=== PATIENT | female | born 1950 | race Hispanic/Latino ===

== ENCOUNTER 2018-07-25 00:10 | Day surgery (SDC) | payer MEDICARE, MEDICAID ==
[2018-07-24 14:36] VITALS: BP 116/72
--- NOTE | 2018-07-24 15:31 | DIREP ---
PROCEDURE:CHEST 2 VIEWS COMPARISON:[facility], CR, ABD 2V WITH CXR, 08/13/2012, 11:07 PM. INDICATIONS:PRE-OP CARDIAC CATH, ABN STRESS TEST, CHEST PAIN FINDINGS: LUNGS/PLEURA:No significant pulmonary parenchymal abnormalities. No effusions. VASCULATURE:Normal. Unremarkable pulmonary vasculature. CARDIAC:Normal. No cardiac silhouette abnormality or cardiomegaly. MEDIASTINUM:Normal. No visible mass or adenopathy. BONES:Normal. No fracture or visible bony lesion. OTHER:Surgical clips are noted in the left breast. CONCLUSION:No active or acute cardiopulmonary disease is seen. Dictated by: Damien Torres M.D. on 07/24/2018 at 03:29 PM
[~2018-07-25] VITALS: Ht 161.3 cm; Wt 81.6 kg
[2018-07-25] VITALS (13 sets, daily range): BP systolic 132–152; BP diastolic 7–78
[~2018-07-25 00:10] MED LIST: CHOL500016 PO; GABA300C10 PO; HYDR200T72 PO; NAPR-636 PO; OMEP40CA6 PO; TRAM50TA PO; ZOLP10TA5 PO
[2018-07-25] MEDS ORDERED: NS 1000ML 1,000 ML ONE ×2 (05:16→06:09)
[2018-07-25] MEDS ORDERED: HEPARIN ONE (06:09)
[2018-07-25] MEDS ORDERED: SUBLIMAZE ONE (06:09)
[2018-07-25] MEDS ORDERED: VERSED ONE (06:10)
[2018-07-25] MEDS ORDERED: XYLOCAINE ONE (06:10)
[2018-07-25] MEDS ORDERED: PHENERGAN PO ONE (07:00)
[2018-07-25] MEDS ORDERED: VALIUM PO ONE (07:00)
[2018-07-25] MEDS ORDERED: NS 1000ML 1,000 ML IV SCH (07:00)
[2018-07-25] MEDS ORDERED: SOLU-MEDROL IV ONE (07:00)
[2018-07-25] MEDS ORDERED: SOLU-MEDROL ONE ×2 (07:15→07:17)
[2018-07-25] MEDS ORDERED: PHENERGAN ONE (07:15)
[2018-07-25] MEDS ORDERED: VALIUM ONE (07:15)
[2018-07-25] MEDS ORDERED: ATIVAN ONE (08:02)
[2018-07-25] MEDS ORDERED: TRANDATE IV ONE (08:17)
[2018-07-25] MEDS ORDERED: TYLENOL PO ONE (08:50)
[2018-07-25] MEDS ORDERED: TYLENOL ONE (08:57)
--- NOTE | 2018-07-25 09:11 | CCR[facility] ---
DATE OF SERVICE: 07/25/2018 PRECATHETERIZATION DIAGNOSES: Abnormal myocardial perfusion scan, left bundle branch block, ejection fraction 38% with cardiomyopathy status rule out significant coronary artery disease, hypertension, and hypertensive heart disease. POSTCATHETERIZATION DIAGNOSES: Left main is a short vessel, appears to be fully patent. LAD is a fair size vessel with a diagonal branch with mild luminal irregularity without any flow obstruction, fairly large size vessel. Circumflex is a large, dominant vessel with 2 large obtuse marginal branch is fully patent. Right coronary artery is a fair size vessel, appears to be fully patent. Left ventricle is dilated, LVEDP is 18 mm with global hypokinesis, ejection fraction 35-38%, consistent with dilated cardiomyopathy with left bundle branch block. ANESTHESIA: 2% lidocaine. PREOPERATIVE MEDICATIONS: Phenergan 50 mg p.o., Valium 2.5 mg p.o., Versed 2 mg IV, fentanyl 75 mcg IV and Ativan 1 mg IV. ANTICOAGULATION: Heparin 2000 units intra-arterially, 2000 units in the flush solution, 1000 units in the dye solution. Dye is Omnipaque. Total amount is 80 mL. CATHETERS: JL4 6-Mexican, JR4 6-Mexican, and 6-Mexican angled pigtail catheter. ARTERIAL TIME: 5 minutes. FLUOROSCOPY TIME: 1.1 minute. PROCEDURES: Left heart catheterization, bilateral selective coronary arteriography, left ventriculography via right femoral Sugey approach. NARRATION OF PROCEDURE: Under local anesthesia, right femoral artery was punctured percutaneously by arterial needle, guide wire passed in right femoral artery, 6-Mexican Cordis sheath introduced, side port of the sheath used for femoral arterial pressure monitoring. Sheath anchored with suture. Left Sugey catheter introduced over guide wire into ascending aorta left coronary artery cannulated and left coronary angiography performed in MIKI and LOU projections with craniocaudal applications to visualize all branches. Left catheter exchanged for right coronary catheter and right coronary angiography performed in MIKI and LOU. This catheter exchanged for 6-Mexican pigtail catheter and catheter crossed the aortic valve and left ventricular LVEDP measured and LV gram performed in 30 degrees LOU view with 30 mL Omnipaque dye and panning of descending aorta attempted. Patient tolerated procedure well. No complications of procedure. Angio-Seal deployed for hemostasis. HEMODYNAMICS: LVEDP is 18 mm. LV pressure is 153/18, femoral artery pressure is 143/85 with a mean of 90. No gradient across the aorta on pullback of the central catheter. FINAL CONCLUSION: Normal coronary angiogram, large coronary vessels, LV dilatation, global hypokinesis, elevated LVEDP, dilated cardiomyopathy, 35-38% ejection fraction, left bundle branch block, hypertension, and hypertensive heart disease. RECOMMENDATIONS: At this time, we will start her on Entresto one tablet twice a day, Aldactone 12.5 mg once a day and then increase it to 25 mg once a day, Coreg 6.25 mg twice a day, Lipitor 20 mg once a day, aspirin 81 mg once a day. See her back in the clinic in 3 weeks. Angio-Seal deployed. Hemostasis achieved. Laxmichand MD Eh DR: JUDY/mili JOB# [id number]
[2018-07-25] MEDS ORDERED: SACU1TAB PO (09:43)
[2018-07-25] MEDS ORDERED: SPIR25TA PO ×2 (09:43→09:44)
[2018-07-25] MEDS ORDERED: ATOR20TA PO (09:44)
[2018-07-25] MEDS ORDERED: CARV6.25 PO (09:44)
== END 2018-07-25 11:25 | disposition home or self-care (01) ==
LOC: SDC 00:10
PROVIDERS: ATTEND Specialist
DX: I44.7 Left bundle-branch block, unspecified (principal); I42.0 Dilated cardiomyopathy; I11.0 Hypertensive heart disease with heart failure; I50.22 Chronic systolic (congestive) heart failure; M06.9 Rheumatoid arthritis, unspecified; E66.9 Obesity, unspecified; Z68.31 Body mass index [BMI] 31.0-31.9, adult; Z87.891 Personal history of nicotine dependence; Z72.89 Other problems related to lifestyle; Z98.51 Tubal ligation status; Z90.710 Acquired absence of both cervix and uterus; Z88.8 Allergy status to other drugs, medicaments and biological substances; Z91.013 Allergy to seafood; Z98.890 Other specified postprocedural states; Z83.3 Family history of diabetes mellitus; Z82.49 Family history of ischemic heart disease and other diseases of the circulatory system
CPT/HCPCS: 36415; 71046; 85610; 85730; 93458; 99152; 99153; C1760; C1894 ×3; J1642; J1644 ×2; J2060; J2250; J2930 ×2; J3010; J3490 ×3; J7030 ×2; Q9967